=== PATIENT | female | born 1965 | race Caucasian/White ===

== ENCOUNTER 2017-09-18 08:05 | Day surgery (SDC) | payer BC ==
[2017-09-18] MEDS ORDERED: PROPOFOL 10 MG/ML VIAL IV ONE (08:06)
[2017-09-18] MEDS ORDERED: LIDOCAINE 2% MDV (20MG/ML) 20ML VIAL IV ONE (08:06)
--- NOTE | 2017-09-19 13:40 | Operative Note ---
DATE OF SURGERY: 09/18/2017 REFERRING PHYSICIAN: Silas Price DO PREOPERATIVE DIAGNOSIS: See below. POSTOPERATIVE DIAGNOSIS: See below. PROCEDURE: COLONOSCOPY to the cecum. INDICATION: Colorectal cancer screening. Patient's only complaint is of constipation since having cholecystectomy. Intravenous sedation was administered by the Department of Anesthesiology and included Diprivan titrated to effect. PROCEDURE: Following informed consent from this alert individual, including a discussion of the risks and benefits of the procedure and an opportunity for the patient to ask questions, the patient was placed in the left lateral decubitus position. A digital rectal examination was performed. No abnormalities were noted. Following this, an Olympus [id number] video colonoscope was inserted into the rectum without resistance. The rectal mucosa had a normal appearance, with normal folds and distensibility. The colonoscope was advanced up through the colon to the level of the cecum without much difficulty. Throughout the bowel, the mucosa appeared normal, the folds are normal and the bowel is fairly well distensible. The colon preparation was good. The cecum was defined by noting the appendiceal orifice and ileocecal valve. From the base of the cecum, the colonoscope was then withdrawn. Scattered diverticula were noted in the sigmoid colon. No other changes were appreciated. Retroflexion of the rectum revealed small internal hemorrhoids. The endoscope was straightened and withdrawn. The patient tolerated the procedure well and was returned to the recovery area in stable condition. IMPRESSION: 1. Sigmoid diverticulosis. 2. Small internal hemorrhoids. RECOMMENDATIONS: The patient was advised she should have a recheck colonoscopy in 10 years' time or sooner if problems arise. Followup also will be with Dr. Price. She can use MiraLAX on a daily basis for constipation and follow up with Dr. Price. As always, thank you for allowing me to participate in the care of your patient. CC: Karis PAIZ
== END 2017-09-18 10:00 | disposition home or self-care (01) ==
LOC: HOP 08:05
PROVIDERS: ATTEND Internal Medicine Gastroenterology
DX: Z12.11 Encounter for screening for malignant neoplasm of colon (principal); K57.30 Diverticulosis of large intestine without perforation or abscess without bleeding; K64.8 Other hemorrhoids; D68.9 Coagulation defect, unspecified
CPT/HCPCS: 00810; G0121